=== PATIENT | female | born 1995 | race Hispanic/Latino ===

== ENCOUNTER 2018-10-24 20:35 | Emergency (ER) | payer BC ==
[~2018-10-24] VITALS: Ht 157.5 cm; Wt 108.9 kg
[2018-10-24 21:48] VITALS: BP 143/74
== END 2018-10-24 22:30 | disposition home or self-care (01) ==
LOC: FSED 20:35
DX: J02.9 Acute pharyngitis, unspecified (principal)
CPT/HCPCS: 83518; 87400; 99283

== ENCOUNTER 2019-05-13 22:33 | Emergency (ER) | payer SELFPAY ==
[~2019-05-13] VITALS: Ht 160 cm; Wt 108.0 kg
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
--- OUTSIDE RECORDS SUMMARY | 2019-05-13 22:36 | XMS REPORT | Continuity of Care Document ---
Author Author [employer] Organization [facility] Address Unknown Phone Unavailable Care Team Providers Care Sccm Administrator Name Role Phone [employer] Unavailable Unavailable Problems No Data Provided for This Section Medications No Data Provided for This Section Allergies, Adverse Reactions, Alerts No Known Medication Allergies Immunizations No Data Provided for This Section Results No Data Provided for This Section Pathology Reports No Data Provided for This Section Diagnostic Reports No Data Provided for This Section Consultation Notes No Data Provided for This Section Discharge Summaries No Data Provided for This Section History and Physicals No Data Provided for This Section Vital Signs No Data Provided for This Section Encounters Location Location Details Encounter Type Encounter Number Reason For Visit Attending Provider ADM Date DC Date Status Source Departed Emergency Room [id number] ERIK MOBLEY MD 10/24/2018 10/24/2018 [facility] Procedures No Data Provided for This Section Assessment and Plan No Data Provided for This Section Plan of Care Plan of Care Date Source Discharge Date 10/24/18 10:30pm Disposition HOME, SELF-CARE Condition at Discharge Stable Instructions/Education Provided Lymphadenitis Forms Provided Work/School Excuse Prescriptions See Medication Section Referrals ONIEL SPAIN MD Address: [address] [place] [address] [phone] Additional Instructions/Education REST; TAKE MEDICATION PRESCRIBED; FOLLOW UP WITH YOUR PCP; 10/24/2018 [facility] Social History Social History Date Source Smoking Status Start Date Stop Date Current some day smoker 10/24/2018 [facility] Family History No Data Provided for This Section Advance Directives Order Name Results Value Date Source Advance Directives Advance Directives No advance directive information available. 10/24/2018 [facility] Functional Status No Data Provided for This Section
[2019-05-13] MEDS ORDERED: NAPROSYN500 MG PO (22:45)
== END 2019-05-13 22:59 | disposition home or self-care (01) ==
LOC: FSED 22:33
DX: J02.9 Acute pharyngitis, unspecified (principal); R07.0 Pain in throat
CPT/HCPCS: 83518; 99282

== ENCOUNTER 2023-01-22 12:26 | Emergency (ER) | payer BC, OTHER ==
[~2023-01-22] VITALS: Ht 160 cm; Wt 108.0 kg
[~2023-01-22 12:26] MED LIST: NAPROSYN500 MG PO
[2023-01-22 12:46] VITALS: O2SAT 98
[2023-01-22] MEDS ORDERED: DOXYCYCLINE HY100 MG PO (12:53)
[2023-01-22] MEDS ORDERED: CEFTRIAXONE 500 MG VIAL IM ONE (13:00)
[2023-01-22] MEDS ORDERED: LIDOCAINE HCL 1% LOCAL INJ 20 ML VIAL INJ ONE (13:00)
== END 2023-01-22 13:45 | disposition home or self-care (01) ==
LOC: ER 13:35
DX: N89.8 Other specified noninflammatory disorders of vagina (principal); Z20.2 Contact with and (suspected) exposure to infections with a predominantly sexual mode of transmission
CPT/HCPCS: 99282; J0696; J2001